=== PATIENT | female | born 1990 | race Two or more races ===

== ENCOUNTER 2020-10-20 03:18 | Inpatient (IN) | payer MEDICAID ==
[2020-10-20] MEDS ORDERED: Docusate Sodium 100 MG Cap PO PRN (03:53)
[2020-10-20] MEDS ORDERED: Acetaminophen 325 MG Tab PO PRN (03:53)
[2020-10-20] MEDS ORDERED: Witch Hazel Medicated Pads 40/Jar TOP PRN (03:53)
[2020-10-20] MEDS ORDERED: Benzocaine/Menthol 20%-0.5% Spray 56 GM Canister TOP PRN (03:53)
--- NOTE | 2020-10-20 04:05 | PCM.LDHP ---
L&D History of Present Illness - General Date of Service: 10/20/20 Admit Problem/Dx: Admission Diagnosis/Problem Admission Diagnosis/Problem 10/20/20 03:52 Celia is a 30-year-old 5 now para 4-0-1-4 who is admitted to labor and delivery at 38-6/7 weeks gestational age with an JESSIE of 10/28/2020 having [place] on [place] by [employer] [place] in her car. Source of Information: Patient, Other ( record) History Limitations: Reports: No Limitations - History of Present Illness Introduction:: Celia is a 30-year-old 5 now para 4-0-1-4 who is admitted to labor and delivery at 38-6/7 weeks gestational age with an JESSIE of 10/28/2020 having delivered on at the roadside by [employer] [place] in her car. She is brought in by the [facility] ambulance. Apparently had very rapid onset of pressure feelings without any prior apparent contractions. She recognized the need to come to the hospital and she and her significant other began their trip to [place]. She had a very strong urge to push and reports that she pushed once and essentially had the baby at that time. She has since delivered the placenta while in the ambulance. Her bleeding was reported to be minimal. She is having cramps intermittently. Her vital signs have been stable. The baby is doing well and is vigorous and crying well. 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 JESSIE of 10/28/2020 was by ultrasound that was done at approximately 6 weeks gestation. Patient has been seen on a regular basis in starting at approximately 5-6/7 weeks on 03/03/2020. She has had a relatively unremarkable course with the exception of diagnosis of gestational diabetes which she reports to be controlled with diet alone. Her weight gain has been approximately 15 pounds during the course the . Her vital signs have been stable. Previous pregnancies have been vaginal deliveries. They have ranged from 36 weeks and 6 days to 40 weeks and 2 days. All have been female. All of been unremarkable with the exception of the last which was complicated by gestational diabetes. Laboratory testing in shows blood to be O+ with a negative antibody screen. First laboratory testing showed hemoglobin of 12.7 and platelets 332,000. She is rubella immune. Follow-up CBC on 09/01/2020 was 11.5 g/dL. Platelets at that time were 285,000. Her 1 hour glucose was 144. 3-hour glucose was 105. Syphilis IgG and IgM were nonreactive. Hepatitis B surface antigen was nonreactive. HIV assay was negative by patient history. Chlamydia and gonorrhea assays negative. Her free T4 on 09/01/2020 was 0.8 ng/dL which is normal. Allergies: None Medications: 1. vitamins daily 2. Prilosec 20 mg p.o. daily as needed for dyspepsia 3. Tylenol No. 3 1-2 tabs every 6 hours taken early in for headache. Has not taken recently. Past medical history: 1. x3. 2. Miscarriage x1 3. History of abnormal Pap smear 4. History of anxiety depression 5. History of pelvic inflammatory disease 6. History of gestational diabetes with last Family history: Mother with hypertension. Maternal grandmother with thyroid disease and maternal grandfather with hypertension and some type of cancer otherwise unknown. 3 brothers no known problems. Social history: Patient is a former smoker. She is , is Servando Paredes. She does not use any significance alcohol or drugs. They live in [place], [place]. She does not work outside the home. Review of systems: In general patient is having some abdominal cramping consistent with cramps. Skin: Negative Lungs: No infectious symptoms or shortness of breath Cardiovascular: No chest pain or exercise intolerance Breasts: No concerns noted. Patient is uncertain if she is going to be nursing. She attempted last with less than optimal success. GI: Negative : Cramps as above. Musculoskeletal: Negative Neurological: Negative In general the patient is well-developed, well-nourished, pleasant female of stated age in no acute distress. Skin is warm dry without lesions. HEENT, neck and back within normal limits. Lungs are clear with good breath sounds in all lung [place]. Cardiovascular exam shows regular and rhythm without murmurs. Breast exam deferred. Abdomen is flat, soft, tender with palpation. Uterus is just below the umbilicus, firm consistent with newly size.. No inguinal lymphadenopathy or hernias are noted. Genital per visualization and bimanual shows normal external genitalia, BUS, pubic hair pattern. There is blood on the perineum and medial aspect of the thighs. Examination of the vagina and perineum shows no evidence of laceration. Uterus is tender with palpation. Small amount of clot is removed from the cervical os and the vagina. Cannot entirely confirm all clot removed. There is normal estrogenization of the vagina. Extremities and neurological exam are grossly within normal limits. H&P Review of Systems - Review of Systems: Review Of Systems: See Below L&D Exam - Exam Exam: See Below - Problem List (1) 38 weeks gestation of SNOMED Code(s): 88415114 ICD Code: Z3A.38 - 38 WEEKS GESTATION OF Status: Acute Current Visit: Yes (2) Gestational diabetes mellitus (GDM) affecting fifth SNOMED Code(s): 37166116635547 ICD Code: O24.419 - GESTATIONAL DIABETES MELLITUS IN , UNSP CONTROL; O09.40 - SUPERVISION OF W GRAND MULTIPARITY, UNSP TRIMESTER Status: Acute Current Visit: Yes (3) Labor, precipitous, delivered SNOMED Code(s): 278501404, 961919929 ICD Code: O62.3 - PRECIPITATE LABOR Status: Acute Current Visit: Yes Problem List Initiated/Reviewed/Updated: Yes Orders Last 24hrs: Active Orders 24 hr Category Date Time Status Patient Status Manage Transfer [TRANSFER] Routine ADT 10/20/20 03:46 Active Resuscitation Status Routine Resus Stat 10/20/20 03:47 Ordered Assessment/Plan Comment:: 1. Celia is a 30-year-old 5 now para 4-0-1-4 who is admitted to labor and delivery at 38-6/7 weeks gestational age with an JESSIE of 10/28/2020 having delivered on at the roadside by [place], [place] in her car. 2. No evidence of perineal or vaginal laceration. 3. Minimal bleeding noted. As IV was not initially running wellgave Methergine 0.2 mg IM to facilitate increase in uterine tone and decrease likelihood of hemorrhage. 4. Patient has O+ blood. Will attempt to draw blood from the placenta for blood type determination. 5. Support breast-feeding decision if patient decides on doing so Plan: 1. Routine care 2. We will obtain CBC, COVID-19, RPR labs per protocol. 3. Tylenol and/or ibuprofen for postoperative analgesia 4. Monitor closely for bleeding 5. Maintain IV until patient ambulating well and to be stable for longer period .
[2020-10-20] MEDS ORDERED: Methylergonovine 0.2 MG/1 ML Amp IM STA (04:08)
[2020-10-20] MEDS ORDERED: Oxytocin/Lactated Ringers 10 UNIT/1,000 ML BAG IV SCH (04:15)
[2020-10-20] MEDS: Ibuprofen 600 MG Tab PO PRN ×4 (04:33→20:56)
[2020-10-20] MEDS: Prenatal Multivitamin with Calcium/Folic Acid/Iron Tab PO SCH (10:20)
[2020-10-21] MEDS: Ibuprofen 600 MG Tab PO PRN (08:14)
[2020-10-21] MEDS: Prenatal Multivitamin with Calcium/Folic Acid/Iron Tab PO SCH (08:14)
--- NOTE | 2020-10-21 10:17 | PCM.SN.2 ---
- Free Text/Narrative Note: Post Progress Note PPD #1 Subjective: Doing well overall. Ambulating without difficulty. Lochia minimal. Voiding without difficulty. Tolerating regular diet without nausea or vomiting. Pain controlled with oral medications. Reports that she will have a sharp pain on the left lower side of her abdomen that becomes somewhat significant. She states that it will radiate across her abdomen towards her right side. It will improve with ibuprofen and rest. Bottlefeeding with minimal difficulty. States that she is not having any breast milk production at this time Objective: Vitals: Vital Signs - 24 hr 10/20/20 10/20/20 10/20/20 11:21 11:24 14:54 Temperature 36.7 C Temperature [ 36.7 C Temporal] Pulse, 61 82 Peripheral Respiratory 16 Rate Blood Pressure 109/63 111/64 O2 Sat by Pulse 98 99 Oximetry 10/20/20 10/21/20 10/21/20 19:53 03:20 08:11 Temperature 37.2 C 36.8 C 36.8 C Temperature [ Temporal] Pulse, 73 57 L 72 Peripheral Respiratory 16 14 16 Rate Blood Pressure 95/60 93/56 L 108/63 O2 Sat by Pulse 97 99 99 Oximetry Physical Exam General: Alert and oriented, no acute distress Lungs: Clear to auscultation bilaterally Heart: Regular rate and rhythm Abdomen: Soft, minimal appropriate tenderness, non-distended, fundus midline, nontender, and 1 fingerbreadth below the umbilicus Extremities: No edema in bilateral lower extremities, no calf tenderness bilaterally Laboratory Results - last 24 hr 10/20/20 Range/Units 04:45 RPR Non-reactive (NONREACTIVE) ASSESSMENT: 30-year-old female -0-1-4 s/p precipitous vaginal delivery that occurred in her personal vehicle near [place], [place] and was brought in by ambulance PPD #1, complicated by precipitous delivery and A1 gestational diabetes PLAN: Doing well Bottlefeeding with minimal difficulty. Assist as needed Lochia minimal. Continue to monitor for appropriate lochia. Continue routine care Anticipate discharge home today Van Catherine MD 10:16 AM 10/21/2020
--- NOTE | 2020-10-21 10:30 | PCM.DCSUM1 ---
Discharge Summary - Hospital Course Free Text/Narrative:: Celia is a 30-year-old 5 now para 4-0-1-4 who is admitted to labor and delivery at 38-6/7 weeks gestational age with an JESSIE of 10/28/2020 having delivered on at the roadside by [place], [place] in her car. She is brought in by the [facility] ambulance. Apparently had very rapid onset of pressure feelings without any prior apparent contractions. She recognized the need to come to the hospital and she and her significant other began their trip to [place]. She had a very strong urge to push and reports that she pushed once and essentially had the baby at that time. She has since delivered the placenta while in the ambulance. Her bleeding was reported to be minimal. She is having cramps intermittently. Her vital signs have been stable. The baby is doing well and is vigorous and crying well. 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 JESSIE of 10/28/2020 was by ultrasound that was done at approximately 6 weeks gestation. Patient has been seen on a regular basis in starting at approximately 5-6/7 weeks on 03/03/2020. She has had a relatively unremarkable course with the exception of diagnosis of gestational diabetes which she reports to be controlled with diet alone. Her weight gain has been approximately 15 pounds during the course the . Her vital signs have been stable. Previous pregnancies have been vaginal deliveries. They have ranged from 36 weeks and 6 days to 40 weeks and 2 days. All have been female. All of been unremarkable with the exception of the last which was complicated by gestational diabetes. Laboratory testing in shows blood to be O+ with a negative antibody screen. First laboratory testing showed hemoglobin of 12.7 and platelets 332,000. She is rubella immune. Follow-up CBC on 09/01/2020 was 11.5 g/dL. Platelets at that time were 285,000. Her 1 hour glucose was 144. 3-hour glucose was 105. Syphilis IgG and IgM were nonreactive. Hepatitis B surface antigen was nonreactive. HIV assay was negative by patient history. Chlamydia and gonorrhea assays negative. Her free T4 on 09/01/2020 was 0.8 ng/dL which is normal. Diagnosis: Stroke: No - Discharge Data Discharge Date: 10/21/20 Discharge Disposition: Home, Self-Care 01 Condition: Good - Referral to Home Health Primary Care Physician: PCP None - Discharge Diagnosis/Problem(s) (1) 38 weeks gestation of SNOMED Code(s): 74496383 ICD Code: Z3A.38 - 38 WEEKS GESTATION OF Status: Acute Current Visit: Yes (2) Gestational diabetes mellitus (GDM) affecting fifth SNOMED Code(s): 79526037538995 ICD Code: O24.419 - GESTATIONAL DIABETES MELLITUS IN , UNSP CONTROL; O09.40 - SUPERVISION OF W GRAND MULTIPARITY, UNSP TRIMESTER Status: Acute Current Visit: Yes (3) Labor, precipitous, delivered SNOMED Code(s): 173994602, 453110295 ICD Code: O62.3 - PRECIPITATE LABOR Status: Acute Current Visit: Yes - Patient Summary/Data Complications: Precipitous vaginal delivery and personal vehicle prior to arrival at the hospital. Hospital Course: Celia Paredes was admitted following precipitous delivery in her personal vehicle near [place], [place]. The patient and the were transferred via ambulance to [facility]. She was GBS negative. On 10/20/2020 she had a normal precipitous vaginal delivery of a live female infant at approximately 02:38. Apgars were 9 and 10 per EMS report. Weight of 3090 g (6 pounds 13.0 ounces). Patient delivered placenta in route to the hospital. Evaluation of the perineum showed no evidence of perineal laceration. Patient was given Methergine 0.2 mg IM for uterine tone due to poor IV access. Her course was uneventful. Her pain was well controlled and she had minimal lochia. She was ambulating, tolerating a regular diet and voiding normally. She was bottlefeeding with minimal difficulty. She was afebrile and her hematocrit was 37.2 on admission after delivery of the . She desired to be discharged home on the morning of PPD #1. Her blood type is O+. - Patient Instructions Diet: Regular Diet as Tolerated Activity: Apply Ice, As Tolerated Activity, Other: Nothing in the vagina for 6 weeks Driving: May Drive Today Showering/Bathing: May Shower Notify Provider of: Fever, Increased Pain, Swelling and Redness, Drainage, Nausea and/or Vomiting Other/Special Instructions: Please contact your physician's office if you have heavy vaginal bleeding enough to soak a pad in less than an hour for several hours. Monitor for any signs of an infection in the breasts with severe pain or redness of the breast. - Discharge Plan *PRESCRIPTION DRUG MONITORING PROGRAM REVIEWED*: Not Applicable *COPY OF PRESCRIPTION DRUG MONITORING REPORT IN PATIENT TIFFANI: Not Applicable Home Medications: Home Meds Acetaminophen [Tylenol] 650 mg PO Q6H PRN tablet 10/21/20 [Rx] Benzocaine/Menthol [Dermoplast Pain Relief [place]] 1 spray TOP ASDIRECTED PRN canister 10/21/20 [Rx] Docusate Sodium [Colace] 100 mg PO BID PRN cap 10/21/20 [Rx] Ibuprofen [Motrin] 600 mg PO Q6H PRN tablet 10/21/20 [Rx] Vit with Ca/FA/Iron [ Plus Iron] 1 each PO DAILY tablet 10/21/20 [Rx] carol [place] [Tucks] 1 pad TOP ASDIRECTED PRN pad 10/21/20 [Rx] Patient Handouts: Care After Vaginal Delivery Referrals: Kraen Diop MD [Physician] - (Follow-up in 3 to 6 weeks for routine visit or earlier as needed.) - Discharge Summary/Plan Comment DC Time >30 min.: No - Patient Data Vitals - Most Recent: Last Vital Signs Temp 36.8 C 10/21/20 08:11 Pulse 72 10/21/20 08:11 Resp 16 10/21/20 08:11 BP 108/63 10/21/20 08:11 Pulse Ox 99 10/21/20 08:11 Weight - Most Recent: 74.389 kg Lab Results - Last 24 hrs: Laboratory Results - last 24 hr 10/20/20 Range/Units 04:45 RPR Non-reactive (NONREACTIVE) Med Orders - Current: Current Medications Acetaminophen (Acetaminophen 325 Mg Tab) 650 mg PO Q4H PRN PRN Reason: mild pain or fever Benzocaine/Menthol (Benzocaine/Menthol 20%-0.5% [place] 56 Gm Canister) 0 gm TOP ASDIRECTED PRN PRN Reason: Perineal Comfort Measure Last Admin: 10/20/20 04:32 Dose: 1 canister Documented by: Docusate Sodium (Docusate Sodium 100 Mg Cap) 100 mg PO BID PRN PRN Reason: Constipation Oxytocin/Lactated Ringer's (Pitocin In Lr 10 Units/1,000 Ml) 10 unit in 1,000 mls @ 3,000 mls/hr IV TITRATE SHOAIB; Protocol Last Admin: 10/20/20 04:35 Dose: 500 munits/min, 3,000 mls/hr Documented by: Ibuprofen (Ibuprofen 600 Mg Tab) 600 mg PO Q4H PRN PRN Reason: Mild pain or fever Last Admin: 10/21/20 08:14 Dose: 600 mg Documented by: Lizzyat Multivit/[place]/Iron/Folic Ac ( Multivitamin With Calcium/Folic Acid/Iron Tab) 1 each PO DAILY SHOAIB Last Admin: 10/21/20 08:14 Dose: 1 each Documented by: Carol Alford (Carol Alford Medicated Pads 40/Jar) 1 pad TOP ASDIRECTED PRN PRN Reason: Perineal Comfort Measure Last Admin: 10/20/20 04:32 Dose: 1 tub Documented by: Discontinued Medications Methylergonovine Maleate (Methylergonovine 0.2 Mg/1 Ml Amp) 0.2 mg IM Q4H STA Stop: 10/20/20 04:09 Last Admin: 10/20/20 04:35 Dose: 0.2 mg Documented by:
== END 2020-10-21 11:40 | disposition home or self-care (01) | DRG 776 ==
LOC: JD.OB 03:18 → UNDOADMIN 03:18 → JD.OB 03:46
PROVIDERS: ADMIT Obstetrics & Gynecology; ATTEND Obstetrics & Gynecology
DX: Z39.0 Encounter for care and examination of mother immediately after delivery (principal); Z20.822 Contact with and (suspected) exposure to COVID-19
CPT/HCPCS: 36415; 85025; 86592; 86803; A9270-GY; J2210; J2590; U0002